=== PATIENT | female | born 1985 | race Two or more races ===

== ENCOUNTER 2023-07-28 13:49 | Emergency (ER) | payer MEDICAID ==
[~2023-07-28] VITALS: Ht 165.1 cm; Wt 71.0 kg
[2023-07-28 13:55] VITALS: O2SAT 98
[2023-07-28] MEDS ORDERED: [UNRECOGNIZED DRUG - CODE] MC (15:15)
[2023-07-28] MEDS ORDERED: NPH,100V SQ (15:15)
[2023-07-28 15:30] VITALS: BP 119/75; PULSE 84; RESP 17; TEMP 98
== END 2023-07-28 16:00 | disposition home or self-care (01) ==
LOC: ER 13:49
DX: Z76.0 Encounter for issue of repeat prescription (principal)
CPT/HCPCS: 99281

== ENCOUNTER 2024-02-07 12:45 | Emergency (ER) | payer MEDICAID ==
[~2024-02-07] VITALS: Ht 165.1 cm; Wt 65.0 kg
[~2024-02-07 12:45] MED LIST: NPH,100V SQ; [UNRECOGNIZED DRUG - CODE] MC
[2024-02-07 12:59] VITALS: O2SAT 85
[2024-02-07] MEDS ORDERED: AMOX125S77 MT (15:06)
[2024-02-07] MEDS ORDERED: IBUP-2028 MT (15:06)
[2024-02-07] MEDS ORDERED: NPH,100V SQ (15:11)
[2024-02-07] MEDS ORDERED: SYRI-218 SQ (15:11)
[2024-02-07 16:58] VITALS: BP 133/87; PULSE 70; RESP 16; TEMP 36.78072; O2SAT 85
== END 2024-02-07 16:58 | disposition home or self-care (01) ==
LOC: ER 12:59
DX: R60.9 Edema, unspecified (principal); R68.84 Jaw pain; E11.9 Type 2 diabetes mellitus without complications; Z79.899 Other long term (current) drug therapy
CPT/HCPCS: 82962; 99283

== ENCOUNTER 2024-07-09 11:18 | Emergency (ER) | payer MEDICAID ==
[~2024-07-09] VITALS: Ht 162.6 cm; Wt 63.0 kg
[~2024-07-09 11:18] MED LIST changes: +AMOX125S77 MT; +IBUP-2028 MT; +SYRI-218 SQ
[2024-07-09 11:27] VITALS: O2SAT 99
[2024-07-09 11:37] VITALS: BP 118/84; PULSE 97; RESP 18; TEMP 36.7; O2SAT 97
[2024-07-09] MEDS ORDERED: [UNRECOGNIZED DRUG - CODE] MC (12:05)
[2024-07-09] MEDS ORDERED: NPH,100V SQ (12:05)
[2024-07-09] MEDS ORDERED: AMOX125S77 MT (12:05)
[2024-07-09] MEDS ORDERED: SYRI-218 SQ (12:05)
[2024-07-09] MEDS ORDERED: IBUP-2028 MT (12:05)
[2024-07-09] MEDS ORDERED: AMOX-494 MT (12:06)
== END 2024-07-09 13:56 | disposition home or self-care (01) ==
LOC: ER 11:18
DX: K08.89 Other specified disorders of teeth and supporting structures (principal); Z76.0 Encounter for issue of repeat prescription; E11.9 Type 2 diabetes mellitus without complications; Z79.4 Long term (current) use of insulin
CPT/HCPCS: 99281